=== PATIENT | male | born 1970 | race African-American/Black ===

== ENCOUNTER 2016-07-17 06:14 | Emergency (ER) | payer OTHER ==
[~2016-07-17] VITALS: Ht 190.5 cm; Wt 106.8 kg
[~2016-07-17 06:14] MED LIST: AMLO-512 PO; GABA-531 PO; LORA1TAB3 PO; QUET25TA PO; QUET50TA PO; TERB250 PO; VENL50TA44 PO
[2016-07-17] MEDS ORDERED: TRAZ-144 PO (06:20)
[2016-07-17] MEDS ORDERED: ONDANSETRON HCL 4 MG/2 ML VIAL IVP ONE (07:30)
[2016-07-17] MEDS ORDERED: KETOROLAC TROMETHAMINE 30 MG/ML VIAL IVP ONE (07:30)
[2016-07-17] MEDS ORDERED: LOPERAMIDE HCL 2 MG CAPSULE PO ONE (07:30)
[2016-07-17] MEDS ORDERED: SODIUM CHLORIDE 0.9% 1,000 ML IV ONE (07:30)
[2016-07-17 07:41] LABS: BASOPHILS % (AUTO) 0.2 % (0.0-2.0); EOSINOPHILS % (AUTO) 0.5 % (1.0-6.0); HEMATOCRIT 46.8 % (41-53); LYMPHOCYTES % (AUTO) 6.4 % (22.0-44.0); MEAN CORPUSCULAR HEMOGLOBIN 28.5 pg (26.0-34.0); MEAN CORPUSCULAR HGB CONC 32.1 G/dL (31.0-37.0); MEAN CORPUSCULAR VOLUME 89 fL (80-100); MONOCYTES % (AUTO) 6.2 % (2.0-9.0); NEUTROPHILS # (AUTO) 13.7 K/uL (1.8-7.7); PLATELET COUNT (AUTO) 350 K/uL (150-450); RED BLOOD CELL COUNT(AUTO) 5.27 MIL/uL (4.50-5.90); RED CELL DISTRIBUTION WIDTH 14.3 % (11.5-14.5); WHITE BLOOD COUNT (AUTO) 15.8 K/uL (4.5-11.0)
[2016-07-17 07:43] LABS: NEUTROPHILS % (AUTO) 86.7 % (40.0-70.0)
[2016-07-17 07:51] LABS: ANION GAP 10 mmol/L (8-16); CALCIUM, TOTAL 9.1 mg/dL (8.8-10.5); CARBON DIOXIDE 28 mmol/L (22-29); CHLORIDE 104 mmol/L (98-107); CREATININE 1.17 mg/dL (0.60-1.30); GLOMERULAR FILTR. RATE CALC > 60 mL/min (>60); POTASSIUM 3.8 mmol/L (3.5-5.1); SODIUM SERUM 142 mmol/L (136-145); UREA NITROGEN, BLOOD 12 mg/dL (7-18)
[2016-07-17 07:57] LABS: ALANINE AMINOTRANSFERASE 26 U/L (12-78); ALBUMIN 3.8 g/dL (3.4-5.0); ASPARTATE AMINOTRANSFERASE 22 U/L (15-37); BILIRUBIN,TOTAL 0.4 mg/dL (0.1-1.0); TOTAL PROTEIN, SERUM 7.7 g/dL (6.4-8.2)
[2016-07-17 08:58] LABS: APPEARANCE,URINE CLEAR (CLEAR); GLUCOSE, URINE (UA) NEGATIVE (NEGATIVE); KETONES,URINE NEGATIVE (NEGATIVE); LEUKOCYTE ESTERASE ,URINE NEGATIVE (NEGATIVE); OCCULT BLOOD,URINE NEGATIVE (NEGATIVE); PROTEIN,URINE TRACE (NEGATIVE)
[2016-07-17 09:01] LABS: ADD UA MICROSCOPIC YES
[2016-07-17 09:06] LABS: RBC,URINE None Seen /HPF (0-2); SQUAMOUS EPITHELIAL CELL,UR Rare /LPF (None Seen); WBC,URINE None Seen /HPF (0-5)
[2016-07-17 09:18] VITALS: BP 113/88
== END 2016-07-17 09:24 | disposition home or self-care (01) ==
LOC: EMS 06:15
DX: A08.4 Viral intestinal infection, unspecified (principal); D72.829 Elevated white blood cell count, unspecified; I10 Essential (primary) hypertension
CPT/HCPCS: 36415; 80053; 81001; 83690; 85025; 96361; 96374; 96375; 99284; J1885; J2405; J7030

== ENCOUNTER 2018-09-12 09:57 | Emergency (ER) | payer OTHER ==
[~2018-09-12] VITALS: Ht 190.5 cm; Wt 93.0 kg
[~2018-09-12 09:57] MED LIST changes: +TRAZ-252 PO
[2018-09-12] MEDS ORDERED: SODIUM CHLORIDE 0.9% 1,000 ML IV ONE ×2 (11:13→13:00)
[2018-09-12] MEDS ORDERED: KETOROLAC TROMETHAMINE 30 MG/ML VIAL IVP ONE (11:15)
[2018-09-12] MEDS ORDERED: ONDANSETRON HCL 4 MG/2 ML VIAL IVP ONE (11:15)
[2018-09-12 11:31] LABS: BASOPHILS % (AUTO) 0.4 % (0.0-2.0); EOSINOPHILS % (AUTO) 0.8 % (1.0-6.0); HEMATOCRIT 47.7 % (41-53); HEMOGLOBIN 15.4 g/dL (13.5-17.5); LYMPHOCYTES # (AUTO) 1.2 K/uL (1.0-4.8); LYMPHOCYTES % (AUTO) 10.5 % (22.0-44.0); MEAN CORPUSCULAR HEMOGLOBIN 29.2 pg (26.0-34.0); MEAN CORPUSCULAR HGB CONC 32.3 G/dL (31.0-37.0); MEAN CORPUSCULAR VOLUME 90 fL (80-100); MONOCYTES % (AUTO) 8.2 % (2.0-9.0); NEUTROPHILS # (AUTO) 9.5 K/uL (1.8-7.7); NEUTROPHILS % (AUTO) 80.1 % (40.0-70.0); PLATELET COUNT (AUTO) 306 K/uL (150-450); RED BLOOD CELL COUNT(AUTO) 5.28 MIL/uL (4.50-5.90); RED CELL DISTRIBUTION WIDTH 13.8 % (11.5-14.5)
[2018-09-12 11:39] LABS: ANION GAP 9 mmol/L (8-16); CALCIUM, TOTAL 9.1 mg/dL (8.8-10.5); CARBON DIOXIDE 25 mmol/L (22-29); CHLORIDE 106 mmol/L (98-107); CREATININE 1.14 mg/dL (0.60-1.30); GLOMERULAR FILTR. RATE CALC > 60 mL/min (>60); GLUCOSE,RANDOM 100 mg/dL (70-110); SODIUM SERUM 140 mmol/L (136-145); UREA NITROGEN, BLOOD 17 mg/dL (7-18)
[2018-09-12 11:45] LABS: ALANINE AMINOTRANSFERASE 25 U/L (12-78); ALKALINE PHOSPHATASE 77 U/L (46-116); ASPARTATE AMINOTRANSFERASE 25 U/L (15-37); BILIRUBIN,TOTAL 0.3 mg/dL (0.1-1.0); LIPASE 97 U/L (73-393); TOTAL PROTEIN, SERUM 7.6 g/dL (6.4-8.2)
[2018-09-12 11:59] LABS: APPEARANCE,URINE CLEAR (CLEAR); BILIRUBIN,URINE NEGATIVE (NEGATIVE); GLUCOSE, URINE (UA) NEGATIVE (NEGATIVE); KETONES,URINE NEGATIVE (NEGATIVE); LEUKOCYTE ESTERASE ,URINE NEGATIVE (NEGATIVE); NITRATE,URINE NEGATIVE (NEGATIVE); OCCULT BLOOD,URINE NEGATIVE (NEGATIVE); PROTEIN,URINE NEGATIVE (NEGATIVE); UROBILINOGEN,URINE 0.2 mg/dL (<=1.0)
[2018-09-12] MEDS ORDERED: HYDROmorphone 2 MG/ML SYRINGE IVP ONE (13:00)
[2018-09-12] MEDS ORDERED: BARIUM SULFATE 0.1% SUSPENSION 450 ML BOTTLE PO ONE (13:00)
[2018-09-12] MEDS ORDERED: IOVERSOL 350 MG/ML 150 ML VIAL ONE (13:40)
[2018-09-12] MEDS ORDERED: SODIUM CHLORIDE 0.9% 100 ML ONE (13:40)
[2018-09-12 14:20] VITALS: BP 113/64
== END 2018-09-12 15:23 | disposition home or self-care (01) ==
LOC: EMS 10:02
DX: K52.9 Noninfective gastroenteritis and colitis, unspecified (principal); I10 Essential (primary) hypertension; F31.9 Bipolar disorder, unspecified; F20.9 Schizophrenia, unspecified; F12.90 Cannabis use, unspecified, uncomplicated; Z79.899 Other long term (current) drug therapy
CPT/HCPCS: 36415; 74177; 80053; 81003; 83690; 85025; 96361; 96374; 96375; 99284; J1170; J1885; J2405; J7030; J7050; Q9967

== ENCOUNTER 2019-04-08 07:48 | Emergency (ER) | payer OTHER ==
[~2019-04-08] VITALS: Ht 185.4 cm; Wt 79.5 kg
[~2019-04-08 07:48] MED LIST changes: -AMLO-512 PO; +AMLO10TA7 PO; +LORA-1000 PO; -LORA1TAB3 PO
[2019-04-08] MEDS ORDERED: SODIUM CHLORIDE 0.9% 1,000 ML IV ONE (08:14)
[2019-04-08] MEDS ORDERED: ONDANSETRON HCL 4 MG/2 ML VIAL IVP ONE (08:15)
[2019-04-08] MEDS ORDERED: ACETAMINOPHEN 500 MG TABLET PO ONE (08:15)
[2019-04-08 08:41] LABS: BASOPHILS % (AUTO) 0.9 % (0.0-2.0); EOSINOPHILS % (AUTO) 0.3 % (1.0-6.0); HEMATOCRIT 48.1 % (41-53); HEMOGLOBIN 16.3 g/dL (13.5-17.5); LYMPHOCYTES # (AUTO) 1.6 K/uL (1.0-4.8); LYMPHOCYTES % (AUTO) 37.4 % (22.0-44.0); MEAN CORPUSCULAR HGB CONC 33.9 G/dL (31.0-37.0); MEAN CORPUSCULAR VOLUME 86 fL (80-100); MONOCYTES # (AUTO) 0.9 K/uL (0.1-1.0); MONOCYTES % (AUTO) 21.9 % (2.0-9.0); NEUTROPHILS # (AUTO) 1.6 K/uL (1.8-7.7); NEUTROPHILS % (AUTO) 39.5 % (40.0-70.0); PLATELET COUNT (AUTO) 249 K/uL (150-450); RED BLOOD CELL COUNT(AUTO) 5.63 MIL/uL (4.50-5.90); RED CELL DISTRIBUTION WIDTH 13.6 % (11.5-14.5)
[2019-04-08 08:54] LABS: ANION GAP 16 mmol/L (8-16); CARBON DIOXIDE 20 mmol/L (22-29); CHLORIDE 101 mmol/L (98-107); CREATININE 1.26 mg/dL (0.60-1.30); GLOMERULAR FILTR. RATE CALC > 60 mL/min (>60); GLUCOSE,RANDOM 91 mg/dL (70-110); POTASSIUM 3.2 mmol/L (3.5-5.1); SODIUM SERUM 137 mmol/L (136-145); UREA NITROGEN, BLOOD 8 mg/dL (7-18)
[2019-04-08 08:58] VITALS: BP 136/76
[2019-04-08 09:00] LABS: ALANINE AMINOTRANSFERASE 20 U/L (12-78); ALBUMIN 3.8 g/dL (3.4-5.0); ALKALINE PHOSPHATASE 60 U/L (46-116); ASPARTATE AMINOTRANSFERASE 25 U/L (15-37); BILIRUBIN,TOTAL 0.5 mg/dL (0.1-1.0); LIPASE 96 U/L (73-393); TOTAL PROTEIN, SERUM 7.6 g/dL (6.4-8.2)
[2019-04-08 09:08] LABS: APPEARANCE,URINE CLEAR (CLEAR); BILIRUBIN,URINE NEGATIVE (NEGATIVE); GLUCOSE, URINE (UA) NEGATIVE (NEGATIVE); KETONES,URINE 40 mg/dL (NEGATIVE); LEUKOCYTE ESTERASE ,URINE NEGATIVE (NEGATIVE); NITRATE,URINE NEGATIVE (NEGATIVE); PROTEIN,URINE NEGATIVE (NEGATIVE); UROBILINOGEN,URINE 0.2 mg/dL (<=1.0)
[2019-04-08 09:15] LABS: BACTERIA,URINE None Seen /HPF (None Seen); OCCULT BLOOD,URINE SMALL (NEGATIVE); WBC,URINE None Seen /HPF (0-5)
[2019-04-08] MEDS ORDERED: OSELTAMIVIR PHOSPHATE 75 MG CAPSULE PO ONE (10:00)
[2019-04-08] MEDS ORDERED: POTASSIUM CHLORIDE 20 MEQ ER TABLET PO ONE (10:00)
== END 2019-04-08 10:28 | disposition home or self-care (01) ==
LOC: EMS 07:50
DX: R11.2 Nausea with vomiting, unspecified (principal); R19.7 Diarrhea, unspecified; F41.9 Anxiety disorder, unspecified; R53.81 Other malaise; G89.29 Other chronic pain; I10 Essential (primary) hypertension; F31.9 Bipolar disorder, unspecified; F20.9 Schizophrenia, unspecified; F12.90 Cannabis use, unspecified, uncomplicated; Z98.890 Other specified postprocedural states
CPT/HCPCS: 36415; 80053; 81001; 83690; 85025; 96361; 96374; 99284; J2405; J7030

== ENCOUNTER 2019-11-29 19:55 | Emergency (ER) | payer OTHER ==
[~2019-11-29] VITALS: Ht 190.5 cm; Wt 100.0 kg
[~2019-11-29 19:55] MED LIST changes: +AMLO-258 PO; -AMLO10TA7 PO; +GABA-1181 PO; -GABA-531 PO; -QUET25TA PO; -TERB250 PO
[2019-11-29] MEDS ORDERED: ACETAMINOPHEN 325 MG TABLET PO ONE (22:00)
[2019-11-29] MEDS ORDERED: IBUPROFEN 400 MG TABLET PO ONE (22:00)
[2019-11-29] MEDS ORDERED: LIDOCAINE 1% 10 ML VIAL INJ ONE (22:45)
[2019-11-29] MEDS ORDERED: LIDOCAINE 2% 5 ML JELLY TP ONE (23:15)
[2019-11-29 23:55] VITALS: BP 137/87
== END 2019-11-30 00:13 | disposition home or self-care (01) ==
LOC: EMS 19:57
DX: S91.312A Laceration without foreign body, left foot, initial encounter (principal); F12.90 Cannabis use, unspecified, uncomplicated; F31.9 Bipolar disorder, unspecified; W25.XXXA Contact with sharp glass, initial encounter; Y93.89 Activity, other specified; Y92.89 Other specified places as the place of occurrence of the external cause; Y99.8 Other external cause status
CPT/HCPCS: 12002; 99283; J3490

== ENCOUNTER 2020-11-20 20:33 | Emergency (ER) | payer OTHER ==
[~2020-11-20] VITALS: Ht 190.5 cm; Wt 100.0 kg
[~2020-11-20 20:33] MED LIST changes: -GABA-1181 PO
[2020-11-20] MEDS ORDERED: KETOROLAC TROMETHAMINE 30 MG/ML VIAL IVP ONE (22:15)
[2020-11-20] MEDS ORDERED: 0.9% SODIUM CHLORIDE 10 ML SYRINGE IVP PRN (22:15)
[2020-11-20] MEDS ORDERED: ACETAMINOPHEN 1000 MG/ISO-OSM 100 ML IV ONE (22:15)
[2020-11-20] MEDS ORDERED: SODIUM CHLORIDE 0.9% 3,000 ML IV ONE (22:15)
[2020-11-20] MEDS ORDERED: LORazepam 2 MG/ML VIAL IVP ONE (22:15)
[2020-11-20 22:23] LABS: APPEARANCE,URINE CLEAR (CLEAR); BILIRUBIN,URINE NEGATIVE (NEGATIVE); GLUCOSE, URINE (UA) NEGATIVE (NEGATIVE); KETONES,URINE NEGATIVE (NEGATIVE); LEUKOCYTE ESTERASE ,URINE NEGATIVE (NEGATIVE); NITRATE,URINE NEGATIVE (NEGATIVE); OCCULT BLOOD,URINE TRACE (NEGATIVE); PH,URINE 7.5 (5.0-8.0); PROTEIN,URINE NEGATIVE (NEGATIVE); UROBILINOGEN,URINE 0.2 mg/dL (<=1.0)
[2020-11-20 22:31] LABS: BACTERIA,URINE None Seen /HPF (None Seen); RBC,URINE 0-2 /HPF (0-2); SQUAMOUS EPITHELIAL CELL,UR Rare /LPF (None Seen); WBC,URINE None Seen /HPF (0-5)
[2020-11-20 22:40] LABS: AMPHET/METH SCREEN,URINE NEGATIVE (NEGATIVE); BARBITURATE SCREEN, URINE NEGATIVE (NEGATIVE); BENZODIAZEPINES SCREEN,URINE NEGATIVE (NEGATIVE); CANNABINOID SCREEN,URINE POSITIVE (NEGATIVE); COCAINE SCREEN,URINE NEGATIVE (NEGATIVE); METHADONE SCREEN, URINE NEGATIVE (NEGATIVE); OPIATE SCREEN,URINE NEGATIVE (NEGATIVE)
[2020-11-20 22:46] LABS: PHENCYCLIDINE SCREEN,URINE NEGATIVE (NEGATIVE)
[2020-11-20 22:52] LABS: BASOPHILS % (AUTO) 0.8 % (0.0-2.0); EOSINOPHILS % (AUTO) 0.6 % (1.0-6.0); HEMATOCRIT 43.2 % (41-53); HEMOGLOBIN 14.4 g/dL (13.5-17.5); LYMPHOCYTES # (AUTO) 0.7 K/uL (1.0-4.8); LYMPHOCYTES % (AUTO) 10.1 % (22.0-44.0); MEAN CORPUSCULAR HEMOGLOBIN 29.4 pg (26.0-34.0); MEAN CORPUSCULAR HGB CONC 33.4 G/dL (31.0-37.0); MEAN CORPUSCULAR VOLUME 88 fL (80-100); MONOCYTES # (AUTO) 1.2 K/uL (0.1-1.0); MONOCYTES % (AUTO) 16.5 % (2.0-9.0); NEUTROPHILS # (AUTO) 5.1 K/uL (1.8-7.7); PLATELET COUNT (AUTO) 276 K/uL (150-450); RED BLOOD CELL COUNT(AUTO) 4.89 MIL/uL (4.50-5.90); RED CELL DISTRIBUTION WIDTH 13.7 % (11.5-14.5)
[2020-11-20 23:05] LABS: D-DIMER 0.57 mg/L FEU (0.00-0.50); PROTHROMBIN TIME 10.9 SEC (9.4-11.6)
[2020-11-20 23:10] LABS: ANION GAP 15 mmol/L (8-16); CARBON DIOXIDE 24 mmol/L (22-29); CHLORIDE 103 mmol/L (98-107); GLUCOSE,RANDOM 100 mg/dL (70-110); SODIUM SERUM 142 mmol/L (136-145); UREA NITROGEN, BLOOD 9 mg/dL (7-18)
[2020-11-20 23:18] LABS: B-TYPE NATRIURETIC PEPTIDE 18 pg/mL (0-100); LACTIC ACID 1.9 mmol/L (0.4-2.0)
[2020-11-20] MEDS ORDERED: POTASSIUM CHLORIDE 20 MEQ ER TABLET PO ONE (23:30)
[2020-11-20 23:32] LABS: COVID AG,FIA SOURCE NASOPHARYNGEAL
[2020-11-20 23:48] LABS: ALANINE AMINOTRANSFERASE 29 U/L (12-78); ALKALINE PHOSPHATASE 76 U/L (46-116); ASPARTATE AMINOTRANSFERASE 22 U/L (15-37); BILIRUBIN,TOTAL 0.4 mg/dL (0.1-1.0); C-REACTIVE PROTEIN QUANT 0.44 mg/dL (0.00-0.30); CALCIUM, TOTAL 8.9 mg/dL (8.8-10.5); CREATINE KINASE, TOTAL ONLY 343 U/L (39-308); CREATININE 1.45 mg/dL (0.60-1.30); FERRITIN 191 ng/mL (26-388); GLOMERULAR FILTR. RATE CALC > 60 mL/min (>60); TOTAL PROTEIN, SERUM 7.9 g/dL (6.4-8.2)
[2020-11-20 23:53] LABS: INFLUENZA TYPE A NEGATIVE FOR TYPE A (NEGATIVE); INFLUENZA TYPE B NEGATIVE FOR TYPE B (NEGATIVE)
[2020-11-21 03:30] VITALS: BP 154/94
== END 2020-11-21 04:00 | disposition home or self-care (01) ==
LOC: EMS 20:52
DX: U07.1 COVID-19 (principal); F31.9 Bipolar disorder, unspecified; F20.9 Schizophrenia, unspecified; F41.9 Anxiety disorder, unspecified; I10 Essential (primary) hypertension; F12.90 Cannabis use, unspecified, uncomplicated; Z79.899 Other long term (current) drug therapy
CPT/HCPCS: 36415; 71045; 80053; 80307; 81001; 82550; 82728; 83605; 83880; 84145; 84484; 85025; 85379; 85610; 85730; 86140; 87040; 87426; 87804; 93005; 96365; 96366; 96375; 99285; G0480; J0131; J1885; J2060; U0003

== ENCOUNTER 2021-02-26 12:07 | Emergency (ER) | payer OTHER ==
[~2021-02-26] VITALS: Ht 190.5 cm; Wt 102.3 kg
[2021-02-26 13:28] VITALS: BP 117/81
[2021-02-26] MEDS ORDERED: NAPROXEN 250 MG TABLET PO ONE (13:45)
[2021-02-26 14:01] LABS: BASOPHILS % (AUTO) 1.1 % (0.0-2.0); EOSINOPHILS % (AUTO) 3.6 % (1.0-6.0); HEMATOCRIT 43.7 % (41-53); HEMOGLOBIN 14.9 g/dL (13.5-17.5); LYMPHOCYTES # (AUTO) 1.6 K/uL (1.0-4.8); LYMPHOCYTES % (AUTO) 34.2 % (22.0-44.0); MEAN CORPUSCULAR HEMOGLOBIN 29.6 pg (26.0-34.0); MEAN CORPUSCULAR HGB CONC 34.1 G/dL (31.0-37.0); MEAN CORPUSCULAR VOLUME 87 fL (80-100); MONOCYTES # (AUTO) 0.5 K/uL (0.1-1.0); MONOCYTES % (AUTO) 11.2 % (2.0-9.0); NEUTROPHILS # (AUTO) 2.3 K/uL (1.8-7.7); NEUTROPHILS % (AUTO) 49.9 % (40.0-70.0); PLATELET COUNT (AUTO) 323 K/uL (150-450); RED BLOOD CELL COUNT(AUTO) 5.03 MIL/uL (4.50-5.90); RED CELL DISTRIBUTION WIDTH 14.4 % (11.5-14.5)
[2021-02-26 14:04] LABS: ANION GAP 6 mmol/L (8-16); CALCIUM, TOTAL 9.5 mg/dL (8.8-10.5); CARBON DIOXIDE 30 mmol/L (22-29); CHLORIDE 107 mmol/L (98-107); CREATININE 1.25 mg/dL (0.60-1.30); GLOMERULAR FILTR. RATE CALC > 60 mL/min (>60); GLUCOSE,RANDOM 90 mg/dL (70-110); POTASSIUM 3.5 mmol/L (3.5-5.1); SODIUM SERUM 143 mmol/L (136-145); UREA NITROGEN, BLOOD 13 mg/dL (7-18)
[2021-02-26 14:09] LABS: ALANINE AMINOTRANSFERASE 28 U/L (12-78); ALBUMIN 3.7 g/dL (3.4-5.0); ALKALINE PHOSPHATASE 70 U/L (46-116); ASPARTATE AMINOTRANSFERASE 19 U/L (15-37); BILIRUBIN,TOTAL 0.5 mg/dL (0.1-1.0)
== END 2021-02-26 14:42 | disposition home or self-care (01) ==
LOC: EMS 12:07
DX: M94.0 Chondrocostal junction syndrome [Tietze] (principal); F12.90 Cannabis use, unspecified, uncomplicated; I10 Essential (primary) hypertension; F31.9 Bipolar disorder, unspecified; F41.9 Anxiety disorder, unspecified; F20.9 Schizophrenia, unspecified
CPT/HCPCS: 71045; 80053; 84484; 85025; 93005; 99285; 36415-L1; 36415-TC

== ENCOUNTER 2021-07-30 02:32 | Emergency (ER) | payer OTHER ==
[~2021-07-30] VITALS: Ht 190.5 cm; Wt 100.0 kg
[2021-07-30] MEDS ORDERED: ACETAMINOPHEN 325 MG TABLET PO ONE (03:15)
[2021-07-30 03:20] LABS: COVID AG,FIA SOURCE NASOPHARYNGEAL
[2021-07-30] MEDS ORDERED: KETOROLAC TROMETHAMINE 30 MG/ML VIAL IM ONE (03:30)
[2021-07-30 03:40] LABS: INFLUENZA TYPE A NEGATIVE FOR TYPE A (NEGATIVE); INFLUENZA TYPE B NEGATIVE FOR TYPE B (NEGATIVE)
[2021-07-30] MEDS ORDERED: KETOROLAC TROMETHAMINE 30 MG/ML VIAL IVP ONE (03:45)
[2021-07-30] MEDS ORDERED: SODIUM CHLORIDE 0.9% 1,000 ML IV ONE (03:45)
[2021-07-30] MEDS ORDERED: METOCLOPRAMIDE HCL 5 MG/ML 2 ML VIAL IVP ONE (03:45)
[2021-07-30] MEDS ORDERED: PROMETHAZINE HCL 25 MG TABLET PO ONE (03:45)
[2021-07-30] MEDS ORDERED: ONDA-104 PO (05:29)
[2021-07-30 05:44] VITALS: BP 131/73
== END 2021-07-30 06:12 | disposition home or self-care (01) ==
LOC: EMS 02:34
DX: K52.9 Noninfective gastroenteritis and colitis, unspecified (principal); B34.9 Viral infection, unspecified; I10 Essential (primary) hypertension; F31.9 Bipolar disorder, unspecified; F20.9 Schizophrenia, unspecified; F12.90 Cannabis use, unspecified, uncomplicated; Z79.899 Other long term (current) drug therapy; Z20.822 Contact with and (suspected) exposure to COVID-19
CPT/HCPCS: 71046; 87426; 87804; 96361; 96374; 96375; 99284; J1885; J2765; J7030

== ENCOUNTER 2022-04-15 14:52 | Emergency (ER) | payer OTHER ==
[~2022-04-15] VITALS: Ht 190.5 cm; Wt 100.0 kg
[~2022-04-15 14:52] MED LIST changes: +ONDA-104 PO
[2022-04-15 18:15] VITALS: BP 157/97
== END 2022-04-15 19:27 | disposition home or self-care (01) ==
LOC: EMS 16:22
DX: S50.02XA Contusion of left elbow, initial encounter (principal); I10 Essential (primary) hypertension; F31.9 Bipolar disorder, unspecified; F20.9 Schizophrenia, unspecified; F41.9 Anxiety disorder, unspecified; F12.90 Cannabis use, unspecified, uncomplicated; Z79.899 Other long term (current) drug therapy; W01.0XXA Fall on same level from slipping, tripping and stumbling without subsequent striking against object, initial encounter; Y93.89 Activity, other specified; Y92.89 Other specified places as the place of occurrence of the external cause; Y99.8 Other external cause status
CPT/HCPCS: 99283

== ENCOUNTER 2023-05-24 15:30 | Emergency (ER) | payer OTHER ==
[~2023-05-24] VITALS: Ht 190.5 cm; Wt 100.0 kg
[~2023-05-24 15:30] MED LIST changes: -ONDA-104 PO
[2023-05-24 15:44] VITALS: TEMP 98.5
[2023-05-24] MEDS ORDERED: VENL-68 PO (15:51)
[2023-05-24] MEDS ORDERED: QUET25TA36 PO (15:51)
[2023-05-24] MEDS ORDERED: QUET-28 PO (15:51)
[2023-05-24] MEDS ORDERED: AMLO5TAB66 PO (15:51)
[2023-05-24] MEDS: ACETAMINOPHEN 500 MG TABLET PO ONE (16:25)
[2023-05-24] MEDS: LIDOCAINE 5% TRANSDERMAL PATCH TD ONE (16:26)
[2023-05-24] MEDS ORDERED: ACET-3385 PO (17:58)
[2023-05-24] MEDS ORDERED: LIDO700A15 TP (17:58)
[2023-05-24 18:02] VITALS: BP 128/84; PULSE 82; RESP 20
== END 2023-05-24 18:04 | disposition home or self-care (01) ==
LOC: EMS 15:30
DX: S13.4XXA Sprain of ligaments of cervical spine, initial encounter (principal); S39.012A Strain of muscle, fascia and tendon of lower back, initial encounter; F41.9 Anxiety disorder, unspecified; F31.9 Bipolar disorder, unspecified; I10 Essential (primary) hypertension; F20.9 Schizophrenia, unspecified; F12.90 Cannabis use, unspecified, uncomplicated; Z98.890 Other specified postprocedural states; G89.29 Other chronic pain; M54.9 Dorsalgia, unspecified; V49.88XA Car occupant (driver) (passenger) injured in other specified transport accidents, initial encounter; Y93.89 Activity, other specified; Y92.89 Other specified places as the place of occurrence of the external cause; Y99.8 Other external cause status
CPT/HCPCS: 72125; 72131; 99284

== ENCOUNTER 2024-08-10 04:44 | Emergency (ER) | payer OTHER ==
[~2024-08-10] VITALS: Ht 182.9 cm; Wt 95.5 kg
[~2024-08-10 04:44] MED LIST changes: +ACET-3385 PO; -AMLO-258 PO; +AMLO5TAB66 PO; +LIDO-57 TP; -LORA-1000 PO; +LORA1TAB25 PO; +QUET-28 PO; +QUET25TA36 PO; -QUET50TA PO; -TRAZ-252 PO; +VENL-68 PO; -VENL50TA44 PO
[2024-08-10 04:54] VITALS: TEMP 97.9
[2024-08-10 05:16] LABS: COVID AG,FIA SOURCE NASAL SWAB
[2024-08-10 05:25] LABS: BASOPHILS % (AUTO) 0.9 % (0.0-2.0); EOSINOPHILS % (AUTO) 2.7 % (1.0-6.0); HEMOGLOBIN 15.1 g/dL (13.5-17.5); LYMPHOCYTES # (AUTO) 2.7 K/uL (1.0-4.8); LYMPHOCYTES % (AUTO) 47.5 % (22.0-44.0); MEAN CORPUSCULAR HEMOGLOBIN 29.4 pg (26.0-34.0); MEAN CORPUSCULAR HGB CONC 33.5 G/dL (31.0-37.0); MEAN CORPUSCULAR VOLUME 88 fL (80-100); MONOCYTES # (AUTO) 0.5 K/uL (0.1-1.0); MONOCYTES % (AUTO) 8.4 % (2.0-9.0); NEUTROPHILS # (AUTO) 2.3 K/uL (1.8-7.7); NEUTROPHILS % (AUTO) 40.5 % (40.0-70.0); PLATELET COUNT (AUTO) 297 K/uL (150-450); RED BLOOD CELL COUNT(AUTO) 5.13 MIL/uL (4.50-5.90); RED CELL DISTRIBUTION WIDTH 14.2 % (11.5-14.5); WHITE BLOOD COUNT (AUTO) 5.7 K/uL (4.5-11.0)
[2024-08-10 05:26] LABS: SARS-COV2 (COVID) ANTIGEN,FIA Negative (Negative)
[2024-08-10 05:27] LABS: ANION GAP 10 mmol/L (8-16); CALCIUM, TOTAL 8.9 mg/dL (8.8-10.5); CARBON DIOXIDE 28 mmol/L (22-29); CHLORIDE 103 mmol/L (98-107); GLOMERULAR FILTR. RATE CALC > 60 mL/min (>60); GLUCOSE,RANDOM 96 mg/dL (70-110); POTASSIUM 3.1 mmol/L (3.5-5.1); SODIUM SERUM 141 mmol/L (136-145); UREA NITROGEN, BLOOD 13 mg/dL (7-18)
[2024-08-10] MEDS: LORazepam 1 MG TABLET PO ONE (06:44)
[2024-08-10] MEDS: OxyCODONE HCL/ACETAMINOPHEN 5-325 MG TABLET PO ONE (06:44)
[2024-08-10 07:31] LABS: APPEARANCE,URINE CLEAR (CLEAR); BILIRUBIN,URINE NEGATIVE (NEGATIVE); COLOR,URINE COLORLESS (YELLOW); GLUCOSE, URINE (UA) NEGATIVE (NEGATIVE); KETONES,URINE NEGATIVE (NEGATIVE); LEUKOCYTE ESTERASE ,URINE NEGATIVE (NEGATIVE); NITRATE,URINE NEGATIVE (NEGATIVE); OCCULT BLOOD,URINE NEGATIVE (NEGATIVE); PROTEIN,URINE NEGATIVE (NEGATIVE); SPECIFIC GRAVITIY, URINE 1.011 (1.003-1.030); UROBILINOGEN,URINE <=1.0 mg/dL (<=1.0)
[2024-08-10 07:37] LABS: ALCOHOL, URINE DRUG SCREEN NEGATIVE (NEGATIVE); AMPHET/METH SCREEN,URINE NEGATIVE (NEGATIVE); BARBITURATE SCREEN, URINE NEGATIVE (NEGATIVE); BENZODIAZEPINES SCREEN,URINE NEGATIVE (NEGATIVE); CANNABINOID SCREEN,URINE POSITIVE (NEGATIVE); COCAINE SCREEN,URINE NEGATIVE (NEGATIVE); METHADONE SCREEN, URINE NEGATIVE (NEGATIVE); OPIATE SCREEN,URINE NEGATIVE (NEGATIVE); PHENCYCLIDINE SCREEN,URINE NEGATIVE (NEGATIVE)
[2024-08-10 08:02] VITALS: BP 140/93; PULSE 88; RESP 18; O2SAT 100
[2024-08-10] MEDS ORDERED: IBUP-1492 PO (10:33)
== END 2024-08-10 10:47 | disposition home or self-care (01) ==
LOC: EMS 04:52
DX: F25.9 Schizoaffective disorder, unspecified (principal); F41.0 Panic disorder [episodic paroxysmal anxiety]; I10 Essential (primary) hypertension; F12.90 Cannabis use, unspecified, uncomplicated; F31.9 Bipolar disorder, unspecified; Z79.899 Other long term (current) drug therapy; Z20.822 Contact with and (suspected) exposure to COVID-19
CPT/HCPCS: 99285; 87426; 80048; 81003; 85025; 36415; 80307; G0480

== ENCOUNTER 2024-08-28 10:41 | Emergency (ER) | payer OTHER ==
[~2024-08-28] VITALS: Ht 182.9 cm; Wt 95.5 kg
[~2024-08-28 10:41] MED LIST changes: +IBUP-1492 PO
[2024-08-28 11:11] LABS: APPEARANCE,URINE CLEAR (CLEAR); BILIRUBIN,URINE NEGATIVE (NEGATIVE); COLOR,URINE LIGHT YELLOW (YELLOW); GLUCOSE, URINE (UA) NEGATIVE (NEGATIVE); KETONES,URINE 40-60 mg/dL (NEGATIVE); LEUKOCYTE ESTERASE ,URINE NEGATIVE (NEGATIVE); NITRATE,URINE NEGATIVE (NEGATIVE); OCCULT BLOOD,URINE NEGATIVE (NEGATIVE); PROTEIN,URINE NEGATIVE (NEGATIVE); SPECIFIC GRAVITIY, URINE 1.022 (1.003-1.030); UROBILINOGEN,URINE <=1.0 mg/dL (<=1.0)
[2024-08-28 11:14] VITALS: TEMP 97.8
[2024-08-28 11:19] LABS: BASOPHILS % (AUTO) 0.5 % (0.0-2.0); EOSINOPHILS % (AUTO) 0.3 % (1.0-6.0); HEMATOCRIT 39.6 % (41-53); HEMOGLOBIN 13.6 g/dL (13.5-17.5); LYMPHOCYTES # (AUTO) 1.4 K/uL (1.0-4.8); MEAN CORPUSCULAR HGB CONC 34.3 G/dL (31.0-37.0); MEAN CORPUSCULAR VOLUME 87 fL (80-100); MONOCYTES # (AUTO) 0.4 K/uL (0.1-1.0); MONOCYTES % (AUTO) 7.5 % (2.0-9.0); NEUTROPHILS % (AUTO) 62.7 % (40.0-70.0); PLATELET COUNT (AUTO) 253 K/uL (150-450); RED BLOOD CELL COUNT(AUTO) 4.53 MIL/uL (4.50-5.90); RED CELL DISTRIBUTION WIDTH 13.5 % (11.5-14.5); WHITE BLOOD COUNT (AUTO) 4.7 K/uL (4.5-11.0)
[2024-08-28 11:32] LABS: ANION GAP 9 mmol/L (8-16); CALCIUM, TOTAL 8.4 mg/dL (8.8-10.5); CARBON DIOXIDE 22 mmol/L (22-29); CHLORIDE 110 mmol/L (98-107); CREATININE 1.15 mg/dL (0.60-1.30); GLOMERULAR FILTR. RATE CALC > 60 mL/min (>60); GLUCOSE,RANDOM 88 mg/dL (70-110); SODIUM SERUM 141 mmol/L (136-145); UREA NITROGEN, BLOOD 12 mg/dL (7-18)
[2024-08-28] MEDS: MORPHINE SULFATE 2 MG/ML SYRINGE IVP ONE (11:32)
[2024-08-28] MEDS: LORazepam 2 MG/ML VIAL IVP ONE (11:32)
[2024-08-28] MEDS: SODIUM CHLORIDE 0.9% 1,000 ML IV ONE (11:32)
[2024-08-28 11:36] LABS: ALBUMIN 3.2 g/dL (3.4-5.0); BILIRUBIN,DIRECT 0.2 mg/dL (0.00-0.20); TOTAL PROTEIN, SERUM 6.2 g/dL (6.4-8.2)
[2024-08-28] MEDS ORDERED: QUET100T34 PO (11:42)
[2024-08-28] MEDS ORDERED: DULO20CA19 PO (11:42)
[2024-08-28] MEDS: POTASSIUM CHLORIDE 20 MEQ ER TABLET PO ONE (11:44)
[2024-08-28] MEDS ORDERED: SODIUM CHLORIDE 0.9% 100 ML ONE (12:05)
[2024-08-28] MEDS ORDERED: 0.9% SODIUM CHLORIDE 10 ML SYRINGE IVP ONE (12:05)
[2024-08-28] MEDS ORDERED: IOHEXOL 350 MG/ML 100 ML VIAL ONE (12:05)
[2024-08-28 17:15] VITALS: BP 122/76; PULSE 66; RESP 15; O2SAT 96
[2024-08-28] MEDS ORDERED: ACET-66 PO (17:27)
[2024-08-28] MEDS ORDERED: IBUP-1554 PO (17:27)
== END 2024-08-28 17:52 | disposition home or self-care (01) ==
LOC: EMS 10:42
DX: N50.82 Scrotal pain (principal); F41.9 Anxiety disorder, unspecified; F31.9 Bipolar disorder, unspecified; F20.9 Schizophrenia, unspecified; I10 Essential (primary) hypertension; F12.90 Cannabis use, unspecified, uncomplicated; Z98.890 Other specified postprocedural states; Z79.899 Other long term (current) drug therapy
CPT/HCPCS: 99285; 74177; 96374; 96361; 96375; 80048; 80076; 81003; 83690; 85025; 36415; 76870; Q9967; J2060; J2270; J7030; J7050

== ENCOUNTER 2024-09-26 21:57 | Emergency (ER) | payer OTHER ==
[~2024-09-26] VITALS: Ht 185.4 cm; Wt 86.4 kg
[~2024-09-26 21:57] MED LIST changes: -ACET-3385 PO; +ACET-66 PO; +DULO20CA57 PO; -IBUP-1492 PO; +IBUP-1554 PO; -LIDO-57 TP; -QUET-28 PO; +QUET100T34 PO; -QUET25TA36 PO; -VENL-68 PO
[2024-09-26 22:16] VITALS: TEMP 98.1
[2024-09-26 23:38] LABS: PLATELET COUNT (AUTO) 263 K/uL (150-450); RED BLOOD CELL COUNT(AUTO) 4.64 MIL/uL (4.50-5.90); RED CELL DISTRIBUTION WIDTH 13.8 % (11.5-14.5); WHITE BLOOD COUNT (AUTO) 7.8 K/uL (4.5-11.0)
[2024-09-26 23:46] LABS: CALCIUM, TOTAL 9.1 mg/dL (8.8-10.5); CREATININE 1.12 mg/dL (0.60-1.30); GLOMERULAR FILTR. RATE CALC > 60 mL/min (>60); GLUCOSE,RANDOM 102 mg/dL (70-110); SODIUM SERUM 144 mmol/L (136-145); UREA NITROGEN, BLOOD 13 mg/dL (7-18)
[2024-09-26 23:54] LABS: TROPONIN I-HIGH SENSITIVITY 5 ng/L (<76)
[2024-09-26 23:57] LABS: APPEARANCE,URINE CLEAR (CLEAR); GLUCOSE, URINE (UA) NEGATIVE (NEGATIVE); LEUKOCYTE ESTERASE ,URINE NEGATIVE (NEGATIVE); NITRATE,URINE NEGATIVE (NEGATIVE); OCCULT BLOOD,URINE NEGATIVE (NEGATIVE); SPECIFIC GRAVITIY, URINE 1.020 (1.003-1.030)
[2024-09-27 00:13] LABS: CREATINE KINASE, TOTAL ONLY 453 U/L (39-308)
[2024-09-27] MEDS: POTASSIUM CHLORIDE 20 MEQ ER TABLET PO ONE (00:18)
[2024-09-27 01:00] VITALS: BP 138/74; PULSE 72; RESP 15; O2SAT 99
== END 2024-09-27 01:36 | disposition home or self-care (01) ==
LOC: EMS 21:57
DX: R07.89 Other chest pain (principal); R51.9 Headache, unspecified; E87.6 Hypokalemia; F41.9 Anxiety disorder, unspecified; F20.9 Schizophrenia, unspecified; I10 Essential (primary) hypertension; F31.9 Bipolar disorder, unspecified; F12.90 Cannabis use, unspecified, uncomplicated; Z98.890 Other specified postprocedural states; Z79.899 Other long term (current) drug therapy
CPT/HCPCS: 71045; 80048; 81003; 82550; 83880; 84484; 85025; 93005; 99285; 36415-L1; 36415-TC

== ENCOUNTER 2024-11-11 20:05 | Emergency (ER) | payer MEDICAID, OTHER ==
[~2024-11-11] VITALS: Ht 190.5 cm; Wt 86.4 kg
[~2024-11-11 20:05] MED LIST changes: -ACET-66 PO; +AMLO-257 PO; -AMLO5TAB66 PO; -DULO20CA57 PO; -IBUP-1554 PO; -LORA1TAB25 PO; +QUET100T PO; -QUET100T34 PO
[2024-11-11 20:10] VITALS: TEMP 98.7
[2024-11-11 21:22] LABS: PLATELET COUNT (AUTO) 291 K/uL (150-450); RED BLOOD CELL COUNT(AUTO) 4.87 MIL/uL (4.50-5.90); RED CELL DISTRIBUTION WIDTH 14.0 % (11.5-14.5); WHITE BLOOD COUNT (AUTO) 5.6 K/uL (4.5-11.0)
[2024-11-11 21:30] LABS: CALCIUM, TOTAL 8.7 mg/dL (8.8-10.5); CREATININE 1.54 mg/dL (0.60-1.30); GLOMERULAR FILTR. RATE CALC 57.0 mL/min (>60); GLUCOSE,RANDOM 95.0 mg/dL (70-110); SODIUM SERUM 142.0 mmol/L (136-145); UREA NITROGEN, BLOOD 12.0 mg/dL (7-18)
[2024-11-11 21:48] LABS: APPEARANCE,URINE CLEAR (CLEAR); GLUCOSE, URINE (UA) NEGATIVE (NEGATIVE); LEUKOCYTE ESTERASE ,URINE NEGATIVE (NEGATIVE); NITRATE,URINE NEGATIVE (NEGATIVE); OCCULT BLOOD,URINE NEGATIVE (NEGATIVE); SPECIFIC GRAVITIY, URINE 1.028 (1.003-1.030)
[2024-11-11] MEDS ORDERED: KETOROLAC TROMETHAMINE 60 MG/2 ML VIAL IM ONE (23:00)
[2024-11-11] MEDS ORDERED: SULF1TAB42 PO (23:01)
[2024-11-11] MEDS ORDERED: IBUP-1493 PO (23:01)
[2024-11-11] MEDS ORDERED: TRAM50TA5 PO (23:22)
[2024-11-11 23:28] VITALS: BP 135/85; PULSE 78; RESP 16; O2SAT 99
[2024-11-12] MEDS ORDERED: TRAM50TA5 PO (17:32)
[2024-11-12] MEDS ORDERED: IBUP-1493 PO (17:32)
[2024-11-12] MEDS ORDERED: SULF1TAB42 PO (17:32)
== END 2024-11-11 23:52 | disposition home or self-care (01) ==
LOC: EMS 20:05
DX: N50.82 Scrotal pain (principal); N50.811 Right testicular pain; N50.812 Left testicular pain; F20.9 Schizophrenia, unspecified; F31.9 Bipolar disorder, unspecified; F41.9 Anxiety disorder, unspecified; I10 Essential (primary) hypertension; F12.90 Cannabis use, unspecified, uncomplicated; Z98.890 Other specified postprocedural states; Z79.899 Other long term (current) drug therapy
CPT/HCPCS: 76870; 80048; 81003; 85025; 99284

== ENCOUNTER 2024-11-18 06:23 | Emergency (ER) | payer OTHER ==
[~2024-11-18] VITALS: Ht 190.5 cm; Wt 86.4 kg
[~2024-11-18 06:23] MED LIST changes: +IBUP-1493 PO; +SULF1TAB42 PO; +TRAM50TA5 PO
[2024-11-18 06:42] LABS: PLATELET COUNT (AUTO) 275 K/uL (150-450); RED BLOOD CELL COUNT(AUTO) 4.87 MIL/uL (4.50-5.90); RED CELL DISTRIBUTION WIDTH 13.9 % (11.5-14.5); WHITE BLOOD COUNT (AUTO) 4.6 K/uL (4.5-11.0)
[2024-11-18 06:54] LABS: CALCIUM, TOTAL 8.7 mg/dL (8.8-10.5); CREATININE 1.58 mg/dL (0.60-1.30); GLOMERULAR FILTR. RATE CALC 55 mL/min (>60); GLUCOSE,RANDOM 101 mg/dL (70-110); SODIUM SERUM 140 mmol/L (136-145); UREA NITROGEN, BLOOD 19 mg/dL (7-18)
[2024-11-18 07:08] LABS: ASPARTATE AMINOTRANSFERASE 17 U/L (15-37); TOTAL PROTEIN, SERUM 6.9 g/dL (6.4-8.2)
[2024-11-18 07:12] LABS: COVID AG,FIA SOURCE NPH
[2024-11-18 07:20] LABS: ALCOHOL, BLOOD (SERUM) < 3 mg/dL (0-10)
[2024-11-18 07:28] LABS: APPEARANCE,URINE CLEAR (CLEAR); GLUCOSE, URINE (UA) NEGATIVE (NEGATIVE); LEUKOCYTE ESTERASE ,URINE NEGATIVE (NEGATIVE); NITRATE,URINE NEGATIVE (NEGATIVE); OCCULT BLOOD,URINE NEGATIVE (NEGATIVE); PH,URINE DRUG SCREEN 7.0 (5.0-8.0); SPECIFIC GRAVITIY, URINE 1.010 (1.003-1.030)
[2024-11-18 07:35] LABS: ALCOHOL, URINE DRUG SCREEN NEGATIVE (NEGATIVE); AMPHET/METH SCREEN,URINE NEGATIVE (NEGATIVE); BARBITURATE SCREEN, URINE NEGATIVE (NEGATIVE); CANNABINOID SCREEN,URINE POSITIVE (NEGATIVE); COCAINE SCREEN,URINE NEGATIVE (NEGATIVE); METHADONE SCREEN, URINE NEGATIVE (NEGATIVE)
[2024-11-18 08:05] LABS: SARS-COV2 (COVID) ANTIGEN,FIA Negative (Negative)
[2024-11-18] MEDS: POTASSIUM CHLORIDE 20 MEQ ER TABLET PO ONE (09:16)
[2024-11-18 10:00] VITALS: BP 131/90; PULSE 80; RESP 16; TEMP 97.5; O2SAT 100
== END 2024-11-18 11:08 ==
LOC: EMS 06:23
DX: F41.9 Anxiety disorder, unspecified (principal); F31.9 Bipolar disorder, unspecified; R42 Dizziness and giddiness; G47.00 Insomnia, unspecified; F20.9 Schizophrenia, unspecified; I10 Essential (primary) hypertension; E87.6 Hypokalemia; F12.90 Cannabis use, unspecified, uncomplicated; Z79.899 Other long term (current) drug therapy; Z20.822 Contact with and (suspected) exposure to COVID-19
CPT/HCPCS: 99285; 87426; 80053; 84443; 85025; 36415; 80307; 81003; G0480

== ENCOUNTER 2025-03-13 05:09 | Emergency (ER) | payer OTHER ==
[~2025-03-13] VITALS: Ht 190.5 cm; Wt 95.5 kg
[~2025-03-13 05:09] MED LIST changes: +DULO40CA2 PO; -IBUP-1493 PO; +PRAZ2 PO; -SULF1TAB42 PO; -TRAM50TA5 PO
[2025-03-13 05:46] VITALS: TEMP 98.1
[2025-03-13 06:29] LABS: COVID AG,FIA SOURCE NASAL SWAB
[2025-03-13 06:37] LABS: PH,URINE DRUG SCREEN 6.5 (5.0-8.0)
[2025-03-13 06:57] LABS: ALCOHOL, URINE DRUG SCREEN NEGATIVE (NEGATIVE); AMPHET/METH SCREEN,URINE NEGATIVE (NEGATIVE); BARBITURATE SCREEN, URINE NEGATIVE (NEGATIVE); CANNABINOID SCREEN,URINE POSITIVE (NEGATIVE); COCAINE SCREEN,URINE NEGATIVE (NEGATIVE); METHADONE SCREEN, URINE NEGATIVE (NEGATIVE)
[2025-03-13 07:00] LABS: PLATELET COUNT (AUTO) 279 K/uL (150-450); RED BLOOD CELL COUNT(AUTO) 5.06 MIL/uL (4.50-5.90); RED CELL DISTRIBUTION WIDTH 13.8 % (11.5-14.5); WHITE BLOOD COUNT (AUTO) 5.5 K/uL (4.5-11.0)
[2025-03-13] MEDS: OxyCODONE HCL/ACETAMINOPHEN 5-325 MG TABLET PO ONE (07:04)
[2025-03-13] MEDS: ONDANSETRON 4 MG TABLET PO ONE (07:04)
[2025-03-13 07:09] LABS: SARS-COV2 (COVID) ANTIGEN,FIA Negative (Negative)
[2025-03-13 07:12] LABS: CALCIUM, TOTAL 9.4 mg/dL (8.8-10.5); CREATININE 1.18 mg/dL (0.60-1.30); GLOMERULAR FILTR. RATE CALC > 60 mL/min (>60); GLUCOSE,RANDOM 93 mg/dL (70-110); SODIUM SERUM 140 mmol/L (136-145); UREA NITROGEN, BLOOD 20 mg/dL (7-18)
[2025-03-13 07:18] LABS: ASPARTATE AMINOTRANSFERASE 24 U/L (15-37); TOTAL PROTEIN, SERUM 8.1 g/dL (6.4-8.2)
[2025-03-13 07:22] LABS: ALCOHOL, BLOOD (SERUM) < 3 mg/dL (0-10)
[2025-03-13 07:30] VITALS: BP 152/102; PULSE 78; RESP 21; O2SAT 99
== END 2025-03-13 10:09 | disposition home or self-care (01) ==
LOC: EMS 05:09
DX: R10.30 Lower abdominal pain, unspecified (principal); F31.9 Bipolar disorder, unspecified; F41.9 Anxiety disorder, unspecified; I10 Essential (primary) hypertension; Z98.890 Other specified postprocedural states; Z79.899 Other long term (current) drug therapy; Z20.822 Contact with and (suspected) exposure to COVID-19
CPT/HCPCS: 99283; 87426; 80048; 80076; 85025; 36415; 80307; G0480; Q0162